=== PATIENT | female | born 1980 | race Caucasian/White ===

== ENCOUNTER 2017-02-02 12:23 | Inpatient (IN) | payer OTHER ==
[~2017-02-02] VITALS: Ht 157.5 cm; Wt 73.0 kg
[2017-02-02 14:16] LABS: ABSOLUTE BASOPHIL COUNT 0 /CUMM (0.0-0.2); ABSOLUTE EOSINOPHIL COUNT 0.1 /CUMM (0.0-0.7); ABSOLUTE GRANULOCYTE CT 11.4 /CUMM (1.4-6.5); ABSOLUTE LYMPH COUNT 1.5 /CUMM (1.2-3.4); ABSOLUTE MONOCYTE COUNT 0.8 /CUMM (0.10-0.60); BASOPHIL % 0.3 % (0.0-2.0); GRANULOCYTE % 82.1 % (42.2-75.2); MEAN CORPUSCULAR HGB 31.9 PG (27.0-31.0); MEAN CORPUSCULAR HGB CONC 33.9 G/DL (33.0-37.0); MEAN CORPUSCULAR VOLUME 94.1 FL (81.0-99.0); PLATELET COUNT 166 /CUMM (130-400); RBC DISTRIBUTION WIDTH 13.7 % (11.5-14.5); RED BLOOD CELL CT 3.72 /CUMM (4.20-5.40); WHITE BLOOD CELL COUNT 13.9 /CUMM (4.8-10.8)
--- NOTE | 2017-02-02 18:54 | History & Physical ---
General Information and HPI MD Statement: I have seen and personally examined LATASHA IRELAND and documented this H&P. The patient is a 36 year old female at 37 weeks and 6 days gestation who presented with a chief complaint of srom 10AM CLEAR FLUID. Source of Information: patient, old records Exam Limitations: no limitations History of Present Illness: PT noted srom 10 am clear fluid second baby h/o retained placenta. this baby is 95%tile. 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 Denies: chills, fever. EENTM: Denies: blurred vision, double vision, visual changes. Cardiovascular: Denies: chest pain. Respiratory: Denies: cough, short of breath. GI: Denies: diarrhea, nausea, vomiting. Neurological/Psychological: Denies: anxiety, depressed. Exam & Diagnostic Data Last 24 Hrs of Vital Signs/I&O vss Obstetric Exam Wgt Gained During : 45# Pelvimetry: tested to 7#10oz Dilation (cm): 2 Effacement (%): 50 Station: -2 Membranes: SROM Fluid: clear Fundal Height (cm): 38 Multiple Gestation? No Contractions: q3-4 min mild-moderate Infant #1 - FHR Baseline: 144 Category: 1 Estimated Weight: 3800g Presentation: vtx Patient for Induction? No Physical Exam General Appearance Alert, Oriented X3, Cooperative, No Acute Distress Skin No Rashes HEENT Atraumatic Cardiovascular Regular Rate Lungs Clear to Auscultation Abdomen Soft, No Tenderness Neurological Normal Gait, Normal Speech, Strength at 5/5 X4 Ext, Normal Tone Extremities No Edema Labs Blood Type & Rh: O POS Antibody Screen: neg Hct/Hgb & Platelets #1: 37.1/12.6/244 Hct/Hgb & Platelets #2: 36.9/11.9/188 Rubella: imm VDRL #1: nr VDRL #2: nr HbsAg: neg HIV #1: nr HIV #2 nr 1 Hr P Group B Strep: neg Initial Ultrasound: 07/07/2016 [id number] Anatomy Ultrasound: 08/12/2016 normal Ultrasound for EFW: 01/18/17 8#1oz Genetic Testing: declined Last 24 Hrs of Labs/Edgar: Laboratory Tests 02/02/17 1325: CBC w Diff NO MAN DIFF REQ, RBC 3.72 L, MCV 94.1, MCH 31.9 H, RDW 13.7, MPV 8.0, Gran % 82.1 H, Lymphocytes % 10.5 L, Monocytes % 6.1, Eosinophils % 1.0, Basophils % 0.3, Absolute Granulocytes 11.4 H, Absolute Lymphocytes 1.5, Absolute Monocytes 0.8 H, Absolute Eosinophils 0.1, Absolute Basophils 0, PUBS MCHC 33.9 02/02/17 1320: Urinalysis LIGHT H, Urine Color YEL, Urine Clarity HAZY H, Urine pH 6.5, Ur Specific Britton 1.015, Urine Protein TRACE H, Urine Ketones NEG, Urine Nitrite NEG, Urine Bilirubin NEG, Urine Urobilinogen 0.2, Ur Leukocyte Esterase MOD H, Ur Microscopic SEDIMENT EXAMINED, Urine RBC 25-50 H, Urine WBC 10-15 H, Ur Epithelial Cells MANY H, Urine Bacteria MANY H, Urine Mucus FEW, Urine Hemoglobin LARGE H, Urine Glucose NEG 02/02/17 1240: Membrane Rupture POSITIVE Assessment/Plan Assessment/Plan: AMA srom at term gbs neg LGA baby pt declines intervention at this time As Ranked By This Provider Problem List: 1. Normal labor Core Measures/Miscellaneous Venous Thromboembolism VTE Risk Factors: / VTE Contraindications: No Contraindications VTE Diagnosis: No Beta Mike Is Beta Mike a Home Med? No Antibiotics Is Patient on Antibiotics? No Attending MD Review Statement Attending Statement Attending MD Statement: examined this patient, discussed with family, discussed w/nursing
--- NOTE | 2017-02-03 07:27 | Labor & Delivery Summary ---
Delivery Summary Vaginal Delivery: Vaginal: spontaneous Episiotomy/Lacerations: Type: 1degree Repair: 3-0 polysorb Anesthesia: nessicaine Placenta: Placenta: abnormal, manual extracrion of placenta necessary appears to have been removed intact Anesthesia: none Baby's Weight: 8# 10oz Apgars - 1 Min: 9 Apgars - 5 Min: 9
[2017-02-03 12:31] VITALS: BP 128/72
[2017-02-04 08:58] LABS: ABSOLUTE BASOPHIL COUNT 0 /CUMM (0.0-0.2); ABSOLUTE EOSINOPHIL COUNT 0.1 /CUMM (0.0-0.7); ABSOLUTE GRANULOCYTE CT 12.5 /CUMM (1.4-6.5); BASOPHIL % 0.3 % (0.0-2.0); EOSINOPHIL % 0.7 % (0-5); GRANULOCYTE % 79.8 % (42.2-75.2); HEMATOCRIT 32.1 % (37-47); MEAN CORPUSCULAR HGB 32.4 PG (27.0-31.0); MEAN CORPUSCULAR HGB CONC 33.9 G/DL (33.0-37.0); MEAN CORPUSCULAR VOLUME 95.4 FL (81.0-99.0); MEAN PLATELET VOLUME 8.1 FL (7.4-10.4); PLATELET COUNT 167 /CUMM (130-400); RBC DISTRIBUTION WIDTH 14.3 % (11.5-14.5); RED BLOOD CELL CT 3.36 /CUMM (4.20-5.40); WHITE BLOOD CELL COUNT 15.6 /CUMM (4.8-10.8)
--- NOTE | 2017-02-04 14:16 | PN- Post Delivery/GYN ---
Subjective Subjective: feeling well Review of Systems Constitutional: Reports: no symptoms. Denies: chills, fever. EENTM: Denies: blurred vision, double vision, visual changes. Cardiovascular: Denies: edema. Respiratory: Denies: cough, short of breath. Neurological/Psychological: Denies: anxiety, depressed. Objective Last 24 Hrs of Vital Signs/I&O vss Physical Exam General Appearance Alert, Oriented X3, Cooperative, No Acute Distress Cardiovascular Regular Rate Lungs Clear to Auscultation Abdomen Soft, fundus firm Pelvic (FEMALE) lochia serosanganous Current Medications: Current Medications Sig/Trina Start time Last Medication Dose Route Stop Time Status Admin Acetaminophen 650 MG Q4P PRN 02/03 730 AC PO Docusate Sodium 100 MG BID PRN 02/03 730 AC PO Hydroxyzine HCl 50 MG AT BEDTIME NEED.. 02/03 730 AC PO Ibuprofen 800 MG .STK-MED ONE 02/04 0601 DC PO 02/04 0602 Ibuprofen 800 MG Q6P PRN 02/03 0730 AC 02/03 PO 2229 Magnesium Hydroxide 30 ML DAILY PRN 02/03 0730 AC PO Methylergonovine 200 MCG Q6 02/03 1200 DC 02/03 Maleate PO 02/04 0000 1615 Oxycodone/ 1 TAB Q3P PRN 02/03 0730 AC Acetaminophen PO Last 24 Hrs of Labs/Edgar: Laboratory Tests 02/04/17 0731: CBC w Diff NO MAN DIFF REQ, RBC 3.36 L, MCV 95.4, MCH 32.4 H, RDW 14.3, MPV 8.1, Gran % 79.8 H, Lymphocytes % 13.0 L, Monocytes % 6.2, Eosinophils % 0.7, Basophils % 0.3, Absolute Granulocytes 12.5 H, Absolute Lymphocytes 2.0, Absolute Monocytes 1.0 H, Absolute Eosinophils 0.1, Absolute Basophils 0, PUBS MCHC 33.9 Assessment/Plan Assessment/Plan ppd #1 vss afebrile plan d/c home tomorrow Problem List: 1. Normal labor Attending MD Review Statement Attending Statement Attending MD Statement: examined this patient, agreed w/resident/PA/FINANCIAL SERVICES REPRESENTATIVE, discussed with nursing
[2017-02-05] MEDS ORDERED: IBUPROFEN800 M1 PO (09:02)
--- NOTE | 2017-02-05 10:31 | PN- OBGYN ---
Surgical Brief Attending Note Brief Attending Note: PPD#2 pt is resting in bed, no complaints PE: VSS CV RRR Lungs CTA B/L Abdomen; soft, nontender, uterus firm, fundus below umbilicus. lochia mild Ext: DCT (-) A/P: 36yo, s/p , PPD#2 1. encourage ambulation 2. will d/c home , f/u in office in 2 wks and 6 wks 3.RT PP care
== END 2017-02-05 11:30 | DRG 775 ==
LOC: CBCO 12:23 → GNO 12:59
PROVIDERS: ADMIT Obstetrics & Gynecology
PROC: 10E0XZZ Delivery of Products of Conception, External Approach (ICD-10-PCS; principal; 2017-02-03)
PROC: 0HQ9XZZ Repair Perineum Skin, External Approach (ICD-10-PCS; 2017-02-03)
DX: O09.523 Supervision of elderly multigravida, third trimester (principal); O36.63X0 Maternal care for excessive fetal growth, third trimester, not applicable or unspecified; Z3A.37 37 weeks gestation of pregnancy; O70.0 First degree perineal laceration during delivery; Z37.0 Single live birth
CPT/HCPCS: GNOP; GNOS; 36415; 81001; 84112